=== PATIENT | male | born 1945 | race Caucasian/White ===

== ENCOUNTER 2016-09-22 17:23 | Emergency (ER) | payer MEDICARE, BC ==
[2016-09-22 17:47] LABS: BASOPHILS 0.4 % (0.0-2.0); EOSINOPHILS 1.2 % (0.0-6.0); EOSINOPHILS# 0.1 X 10^3uL (0.0-0.4); HEMATOCRIT 43.8 % (42.0-54.0); HEMOGLOBIN 15.2 g/dL (14.0-18.0); LYMPHOCYTES 17.4 % (20.0-40.0); MEAN CELL VOLUME 91.4 fL (80.0-100.0); MEAN CORPUS. HGB CONCENTRATION 34.6 g/dL (32.0-36.0); MEAN CORPUSCULAR HEMOGLOBIN 31.7 pg (29.0-35.0); MEAN PLATELET VOLUME 7.4 fL (7.4-10.4); MONOCYTES 9.6 % (2.0-10.0); MONOCYTES# 0.6 X 10^3uL (0.2-1.0); NEUTROPHILS 71.4 % (54.0-75.0); NEUTROPHILS# 4.2 X 10^3uL (2.6-6.7); RED BLOOD COUNT 4.79 X 10^6uL (4.20-6.10); RED CELL DISTRIBUTION WIDTH 13.1 % (11.5-14.5); WHITE BLOOD COUNT 5.9 X 10^3uL (3.9-10.7)
[2016-09-22 17:56] LABS: CALCIUM 9.3 mg/dL (8.4-10.2); CREATININE 1.3 mg/dL (0.7-1.3); POTASSIUM 4.3 mmol/L (3.5-5.1)
--- NOTE | 2016-09-22 18:59 | ER PHYSICIAN DOCUMENTATION ---
Physician Documentation [facility] Name:Tom Tsang Age:70 yrs Sex:Male :1945 Arrival Date:09/22/2016 Time:17:23 BedTrauma-A Private MD:John Faye ED, Chris Disposition: 09/22 18:48 Critical Care: not applicable. cd Disposition: 09/22/16 18:52 Discharged to Home/Self Care. Impression: Altered Mental Status - : Resolved, Confusion - : Resolved. - Condition is Good. - Discharge Instructions: ALTERED LOC, CONFUSION. - Medical Reconciliation form form. - Follow up: John Faye MD; When: Tomorrow; Reason: Recheck today's complaints, Continuance of care. - Problem is an acute exacerbation. - Symptoms are resolved. - Notes: Drink 2 - 3 quarts of water every day. Rest, follow up with Dr. Faye tomorrow at the [facility] at 3:40 PM for a recheck. HPI: 17:30 This 70 yrs old Male presents to ER via Private Vehicle with complaints of cd Altered Mental Status. 17:30 The patient presents with confusion, disorientation, to place, to time, trouble cd concentrating. Onset: The symptom(s)/episode began/occurred acutely, 2.5 hour(s) ago, at 15:00, and improved this morning, today, completely resolved after 90 minutes and now is symptom free. Possible causes: CVA or TIA, unknown, dehydration. Associated signs and symptoms: Pertinent negatives: abdominal pain, chest pain, diaphoresis, headache, lightheadedness, nausea, palpitations, seizure, shortness of breath, tingling, vomiting, weakness. Current symptoms: In the emergency department the patient's symptoms have resolved, the patient is alert and fully oriented, has normal speech, has normal responsiveness, has no confusion. Patient's baseline: Neuro: alert and fully oriented, Motor: no deficits, Ambulation: walks without assistance, Speech: normal. The patient has experienced a previous episode, and the symptoms today are exactly the same, while in [place] 1 - 2 years ago. MRI of the Brain was Negative. Historical: - Allergies: No known drug Allergies; - Home Meds: 1. Atenolol Oral 2. Omeprazole Oral 3. Simvastatin Oral - PMHx: Hypertension; HIGH CHOLESTEROL; GERD; - PSHx: HERNIA REPAIR; PROSTATECTOMY; Appendectomy; - Tetanus: < 10 years. - Ebola Screening: : Patient negative for fever greater than or equal to 101.5 degrees Fahrenheit, and additional compatible Ebola Virus Disease symptoms. - Immunization history: Flu Vaccine < 1 year. - Social history: Smoking status: Patient states was never smoker of tobacco. ROS: 17:50 Constitutional: Positive for poor PO intake, Negative for chills, fever. cd 17:50 Neuro: Positive for altered mental status, Negative for dizziness, gait disturbance, headache, loss of consciousness, numbness, seizure activity, speech changes, syncope, near syncope, tingling, visual changes, weakness. 17:50 All other systems are negative. Exam: 17:50 Head/Face: Normocephalic, atraumatic. cd Eyes: Pupils equal round and reactive to light, extra-ocular motions intact. Lids and lashes normal. Conjunctiva and sclera are non-icteric and not injected. Cornea within normal limits. Periorbital areas with no swelling, redness, or edema. ENT: Nares patent. No nasal discharge, no septal abnormalities noted. Tympanic membranes are normal and external auditory canals are clear. Oropharynx with no redness, swelling, or masses, exudates, or evidence of obstruction, uvula midline. Mucous membranes moist. Neck: Trachea midline, no thyromegaly or masses palpated, and no cervical lymphadenopathy. Supple, full range of motion without nuchal rigidity, or vertebral point tenderness. No Meningismus. Chest/axilla: Normal chest wall appearance and motion. Nontender with no deformity. No lesions are appreciated. Cardiovascular: Regular rate and rhythm with a normal S1 and S2. No gallops, murmurs, or rubs. Normal PMI, no JVD. No pulse deficits. Respiratory: Lungs have equal breath sounds bilaterally, clear to auscultation and percussion. No rales, rhonchi or wheezes noted. No increased work of breathing, no retractions or nasal flaring. Abdomen/GI: Soft, non-tender, with normal bowel sounds. No distension or tympany. No guarding or rebound. No evidence of tenderness throughout. Back: No spinal tenderness. No costovertebral tenderness. Full range of motion. Skin: Warm, dry with normal turgor. Normal color with no rashes, no lesions, and no evidence of cellulitis. MS/ Extremity: Pulses equal, no cyanosis. Neurovascular intact. Full, normal range of motion. 17:50 Neuro: Awake and alert, GCS 15, oriented to person, place, time, and situation. cd Cranial nerves II-XII grossly intact. Motor strength 5/5 in all extremities. Sensory grossly intact. Cerebellar exam normal. Normal gait. 17:50 Constitutional: The patient appears alert, awake, non-diaphoretic, non-toxic, well nourished, anxious. 17:50 Neuro: Orientation: is normal, appropriate for stated age, to person, place & time. Mentation: is normal, Memory: is normal, Cranial nerves: CN II- XII are normal as tested, Cerebellar function: is grossly normal, Motor: is normal, Sensation: is normal. Vital Signs: 17:30 BP 160 / 84; Pulse 69; Resp 16; Temp 97.9(O); Pulse Ox 95% on R/A; Weight 90.72 kg; rh Height 5 ft. 10 in. (177.80 cm); Pain 0/10; 17:30 Body Mass Index 28.70 (90.72 kg, 177.80 cm) rh NIH Stroke Scale Scores: 17:47 NIHSS Score: 0 rh [place] Coma Score: 17:50 Eye Response: spontaneous(4). Verbal Response: oriented(5). Motor Response: obeys cd commands(6). Total: 15. MDM: 17:35 Data interpreted: Pulse oximetry: on room air is 95 %. Interpretation: normal. cd 17:40 Differential Diagnosis: electrolyte abnormality, hypoglycemia, TIA, UTI, volume cd depletion. 17:45 Data reviewed: vital signs, nurses notes, old medical records, EKG, and as a result, I cd will continue to observe the patient, administer IV fluids, NS bolus. 17:59 Patient medically screened. cd 18:44 EKG attached lp 18:50 Counseling: I had a detailed discussion with the patient and/or guardian regarding: the cd historical points, exam findings, and any diagnostic results supporting the discharge/admit diagnosis, lab results, the need for outpatient follow up, for a recheck, with the patient's primary care provider, to return to the emergency department if symptoms worsen or persist or if there are any questions or concerns that arise at home. Response to treatment: the patient's symptoms have resolved after treatment, the patient's condition has returned to base line, and as a result, I will discharge patient. 09/22 17:53 Order name: CBC AUTO DIF, MDIF/RMOR IF IND; Complete Time: 18:19 EDMS 09/22 18:19 Interpretation: Normal. cd 09/22 17:59 Order name: BASIC METABOLIC PANEL; Complete Time: 18:19 EDMS 09/22 18:19 Interpretation: Normal. cd 09/22 18:02 Order name: PROTIME/INR; Complete Time: 18:19 EDMS 09/22 18:19 Interpretation: Normal. cd 09/22 17:39 Order name: Iv Saline Lock; Complete Time: 17:39 cd 09/22 17:39 Order name: Accucheck; Complete Time: 17:45 cd 09/22 17:39 Order name: Cardiac Monitoring - Continuous; Complete Time: 17:45 cd 09/22 17:39 Order name: Pulse Ox Continuous; Complete Time: 17:45 cd 09/22 17:41 Order name: EKG - 12 Lead; Complete Time: 17:45 cd Dispensed Medications: 17:41 Drug: NS 0.9% 1000 ml; Route: IV; Rate: bolus; Site: left antecubital; rh 18:30 Follow up: IV Status: Completed infusion; IV Intake: 1000ml rh Point of Care Testing: Blood Glucose: 17:32 Blood Glucose: 88 mg/dL; rh Urine Dip: 18:52 pH: 5.5; ; Specific [place]: 1.025; Ketones: Small; Glucose: Negative; Protein: rh Negative; Leukocytes: Negative; Nitrite: Negative ; Blood: Negative; Bilirubin: Negative ; Urobilinogen: Normal Ranges: Critical Glucose Levels:Adult <50 mg/dl or >400 mg/dl <40 mg/dl or >180 mg/dl NIH Stroke Scale - NIH Stroke Score Date: 09/22/2016 Time: 17:47 Total Score = 0 1a. Level of Consciousness (LOC) - 0(Alert) 1b. Level of Consciousness (LOC) (Year & Age) - 0(Both) 1c. LOC Commands (Open & Closes Eyes/Precision Honing Machine Operator) - 0(Both) 2. Best Gaze (Lateral Gaze Paresis) - 0(Normal) 3. Visual Field Loss - 0(No visual loss) 4. Facial Palsy - 0(Normal) 5a. Left Arm: Motor (10-second hold) - 0(No drift) 5b. Right Arm: Motor (10-second hold) - 0(No drift) 6a. Left Leg: Motor (5-second hold ? always test supine) - 0(No drift) 6b. Right Leg: Motor (5-second hold ? always test supine) - 0(No drift) 7. Limb Ataxia (finger/nose & heel/dahl ? test with eyes open) - 0(Absent) 8. Sensory Loss (pinprick arms/legs/face) - 0(Normal) 9. Best Language: Aphasia (description/naming/reading) - 0(No aphasia) 10. Dysarthria (speech clarity ? read or repeat words) - 0(Normal) 11. Extinction and Inattention (visual/tactile/auditory/spatial/personal) - 0(No abnormality) Initials: Signatures: Natalia Merlos RN RN lp Daley, Chris, MD MD cd Hofsess, Rachel
--- NOTE | 2016-09-22 18:59 | ER NURSING DOCUMENTATION ---
Nurse's Notes [facility] Name:Tom Tsang Age:70 yrs Sex:Male :1945 Arrival Date:09/22/2016 Time:17:23 BedTrauma-A Private MD:John Faye Diagnosis:Altered Mental Status-: Resolved;Confusion-: Resolved Presentation: 09/22 17:29 Acuity: AMBER 2 rh 17:45 Presenting complaint: Patient states: At 1500 today patient had about 90 minutes of rh confusion. PT was unable to name objects and didn't remember the mailman coming to the door, who dropped off a computer. Confusion has cleared up and patient has no SX. Transition of care: Home. 17:45 Method Of Arrival: Private Vehicle rh Triage Assessment: 17:47 General: Appears in no apparent distress, Behavior is cooperative. Pain: Denies pain. rh EENT: Oral mucosa is dry. Neuro: Level of Consciousness is awake, alert, obeys commands, Oriented to person, place, time, event, Lasting Room Machine Operator are equal bilaterally Moves all extremities. Gait is steady, Speech is normal, Facial symmetry appears normal, Pupils are PERRLA, Denies blurred vision headache. Cardiovascular: Capillary refill < 3 seconds. Respiratory: Airway is patent. GI: Denies nausea. : No deficits noted. Derm: Skin is intact, is healthy with good turgor, Skin is pink, warm & dry. Historical: - Allergies: No known drug Allergies; - Home Meds: 1. Atenolol Oral 2. Omeprazole Oral 3. Simvastatin Oral - PMHx: Hypertension; HIGH CHOLESTEROL; GERD; - PSHx: HERNIA REPAIR; PROSTATECTOMY; Appendectomy; - Tetanus: < 10 years. - Ebola Screening: : Patient negative for fever greater than or equal to 101.5 degrees Fahrenheit, and additional compatible Ebola Virus Disease symptoms. - Immunization history: Flu Vaccine < 1 year. - Social history: Smoking status: Patient states was never smoker of tobacco. Screenin:49 Infectious Disease Risk None. Abuse screen: Denies threats or abuse. Denies injuries rh from another. Nutritional screening: No deficits noted. Assessment: 17:49 See Triage Assessment done by same RN. rh Vital Signs: 17:30 BP 160 / 84; Pulse 69; Resp 16; Temp 97.9(O); Pulse Ox 95% on R/A; Weight 90.72 kg; rh Height 5 ft. 10 in. (177.80 cm); Pain 0/10; 17:30 Body Mass Index 28.70 (90.72 kg, 177.80 cm) rh [place] Coma Score: 17:50 Eye Response: spontaneous(4). Verbal Response: oriented(5). Motor Response: obeys cd commands(6). Total: 15. NIH Stroke Scale Scores: 17:47 NIHSS Score: 0 rh ED Course: 17:25 Patient arrived in ED. ds 17:25 John Faye MD is Private Physician. ds 17:28 nuclear monitoring technician on. Pulse ox on. NIBP on. rh 17:29 May Kim is Primary Nurse. rh 17:29 Triage completed. rh 17:30 Notified ED Physician of patient's arrival and chief complaint. Dr. Agosto notified. rh 17:35 Inserted peripheral IV: 20 gauge in left antecubital area and blood collected. rh 17:38 Abilio Agosto MD is Attending Physician. cd 17:41 EKG done. (by ED staff). Reviewed by Abilio Agosto MD. rh 17:49 Valuables Remains with patient Patient has correct armband on for positive rh identification. Placed in gown. Bed in low position. Call light in reach. Side rails up X 1. 18:44 EKG attached lp 18:48 John Faye MD is Referral Physician. cd Administered Medications: 17:41 Drug: NS 0.9% 1000 ml; Route: IV; Rate: bolus; Site: left antecubital; rh 18:30 Follow up: IV Status: Completed infusion; IV Intake: 1000ml Point of Care Testing: Blood Glucose: 17:32 Blood Glucose: 88 mg/dL; rh Urine Dip: 18:52 pH: 5.5; ; Specific [place]: 1.025; Ketones: Small; Glucose: Negative; Protein: rh Negative; Leukocytes: Negative; Nitrite: Negative ; Blood: Negative; Bilirubin: Negative ; Urobilinogen: Normal Ranges: Intake: 18:30 IV: 1000ml; Total: 1000ml. rh Outcome: 18:52 Discharge ordered by . cd 18:58 Discharged to home ambulatory. rh 18:58 Condition: improved 18:58 Discharge Assessment: Patient awake, alert and oriented x 3. No cognitive and/or functional deficits noted. Patient verbalized understanding of disposition instructions. 18:58 Discharge instructions given to patient, Instructed on discharge instructions, follow up and referral plans. Demonstrated understanding of instructions. 18:58 IV D/Madhu 18:58 Patient left the ED. 09/23 10:15 Discharge F/U Call: Unable to reach: no answer 09/24 10:38 Discharge F/U Call: Spoke with: patient. other: Name: pt continues to feel fine. pt st saw Dr. Faye yesterday and was told that the event was probable Transient Global Amnesia. NIH Stroke Scale - NIH Stroke Score Date: 09/22/2016 Time: 17:47 Total Score = 0 1a. Level of Consciousness (LOC) - 0(Alert) 1b. Level of Consciousness (LOC) (Year & Age) - 0(Both) 1c. LOC Commands (Open & Closes Eyes/Electronic Sensing Equipment Assembler) - 0(Both) 2. Best Gaze (Lateral Gaze Paresis) - 0(Normal) 3. Visual Field Loss - 0(No visual loss) 4. Facial Palsy - 0(Normal) 5a. Left Arm: Motor (10-second hold) - 0(No drift) 5b. Right Arm: Motor (10-second hold) - 0(No drift) 6a. Left Leg: Motor (5-second hold ? always test supine) - 0(No drift) 6b. Right Leg: Motor (5-second hold ? always test supine) - 0(No drift) 7. Limb Ataxia (finger/nose & heel/dahl ? test with eyes open) - 0(Absent) 8. Sensory Loss (pinprick arms/legs/face) - 0(Normal) 9. Best Language: Aphasia (description/naming/reading) - 0(No aphasia) 10. Dysarthria (speech clarity ? read or repeat words) - 0(Normal) 11. Extinction and Inattention (visual/tactile/auditory/spatial/personal) - 0(No abnormality) Initials: Signatures: Lizz Riley, RN Natalia White, RN RN lp Srot, [place], Reg Reg Abilio Townsend MD MD cd Hofsess, Rachel
== END 2016-09-22 18:58 | disposition home or self-care (01) ==
LOC: ER 17:23
DX: R41.82 Altered mental status, unspecified (principal); R29.700 NIHSS score 0; E86.9 Volume depletion, unspecified; I10 Essential (primary) hypertension; E78.00 Pure hypercholesterolemia, unspecified; Z79.899 Other long term (current) drug therapy
CPT/HCPCS: 80048; 85025; 85610; 93005; 93010; 96360; 99284